=== PATIENT | male | born 1945 | race Caucasian/White ===

== ENCOUNTER → 2024-06-18 13:55 | Outpatient (REF) | payer MEDICARE, OTHER, SELFPAY | LOC: RCS 13:55 | PROVIDERS: ATTENDING PHYSICIAN Internal Medicine Cardiovascular Disease; FAMILY PHYSICIAN Family Medicine | DX: I10 Essential (primary) hypertension (principal); E78.2 Mixed hyperlipidemia; E78.6 Lipoprotein deficiency; E11.9 Type 2 diabetes mellitus without complications; M60.80 Other myositis, unspecified site | CPT/HCPCS: 93306 ==

== ENCOUNTER → 2025-05-20 07:32 | Outpatient (REF) | payer MEDICARE, OTHER, SELFPAY | LOC: HWRAD 07:32 | PROVIDERS: ATTENDING PHYSICIAN Nurse Practitioner Adult Health; FAMILY PHYSICIAN Family Medicine | DX: D75.89 Other specified diseases of blood and blood-forming organs (principal); D69.6 Thrombocytopenia, unspecified; D72.819 Decreased white blood cell count, unspecified | CPT/HCPCS: 76705 ==

== ENCOUNTER 2025-06-03 06:57 | Outpatient (RCR) | payer MEDICARE, OTHER, SELFPAY | END 2025-06-03 23:59 | disposition home or self-care (01) | LOC: RPT 06:57 | PROVIDERS: ATTENDING PHYSICIAN Internal Medicine Rheumatology; FAMILY PHYSICIAN Family Medicine | DX: R26.81 Unsteadiness on feet (principal); Z73.6 Limitation of activities due to disability; R26.89 Other abnormalities of gait and mobility | CPT/HCPCS: 97110; 97112; 97162; 97535 ==